=== PATIENT | male | born 1970 | race Caucasian/White ===

== ENCOUNTER 2016-11-05 09:50 | Inpatient (IN) | payer OTHER ==
[2016-11-05 11:00] VITALS: BMI 22.5
--- NOTE | 2016-11-05 12:18 | HP ---
CIWA Score - CIWA Score Nausea/Vomitin-Mild Nausea/No Vomiting Muscle Tremors: 4-Moderate,w/Arms Extend Anxiety: 3 Agitation: 4-Moderately Restless Paroxysmal Sweats: 3 Orientation: 0-Oriented Tacttile Disturbances: 0-None Auditory Disturbances: 0-None Visual Disturbances: 0-None Headache: 2-Mild CIWA-Ar Total Score: 17 Admission ROS BHS - HPI Chief Complaint: I need to be here to detox and go to rehab. Allergies/Adverse Reactions: Allergies Allergy/AdvReac Type Severity Reaction Status Date / Time No Known Allergies Allergy Verified 11/05/16 11:19 History of Present Illness: Pt is a 45yr old male with a history of alcohol dependence seeking detox for treatment. Exam Limitations: No Limitations - Ebola screening Have you traveled outside of the country in the last 21 days: No Have you had contact with anyone from an Ebola affected area: No Have you been sick,other than usual withdrawal symptoms: No Do you have a fever: No - Review of Systems Constitutional: Diaphoresis, Loss of Appetite, Night Sweats, Unintentional Wgt. Loss EENT: reports: No Symptoms Reported Respiratory: reports: No Symptoms reported GI: reports: Nausea, Poor Appetite, Poor Fluid Intake : reports: No Symptoms Reported Musculoskeletal: reports: Back Pain Integumentary: reports: Flushing, Sweating Neuro: reports: Headache, Tingling, Tremors Endocrine: reports: Excessive Sweating, Flushing, Intolerance to Cold, Intolerance to Heat Hematology: reports: No Symptoms Reported Psychiatric: reports: Judgement Intact, Mood/Affect Appropiate, Orientated x3, Agitated, Anxious Other Systems: Reviewed and Negative Patient History - Patient Medical History Hx Anemia: No Hx Asthma: No Hx Chronic Obstructive Pulmonary Disease (COPD): No Hx Cancer: No Hx Cardiac Disorders: No Hx Congestive Heart Failure: No Hx Hypertension: No Hx Hypercholesterolemia: No Hx Pacemaker: No HX Cerebrovascular Accident: No Hx Seizures: No Hx Dementia: No Hx Diabetes: No Hx Gastrointestinal Disorders: No Hx Liver Disease: No Hx Genitourinary Disorders: No Hx Sexually Transmitted Disorders: No Hx Renal Disease (ESRD): No Hx Thyroid Disease: No Hx Human Immunodeficiency Virus (HIV): No (negative) Hx Hepatitis C: No (negative) Hx Depression: Yes Hx Suicide Attempt: No (denies) Hx Bipolar Disorder: No Hx Schizophrenia: No - Patient Surgical History Past Surgical History: No Hx Neurologic Surgery: No Hx Cataract Extraction: No Hx Cardiac Surgery: No Hx Lung Surgery: No Hx Breast Surgery: No Hx Breast Biopsy: No Hx Abdominal Surgery: No Hx Appendectomy: No Hx Cholecystectomy: No Hx Genitourinary Surgery: No Hx Section: No Hx Orthopedic Surgery: No Anesthesia Reaction: No - PPD History Previous Implant?: Yes Documented Results: Negative w/o proof Implanted On Prior [facility] Admission?: Yes PPD to be Administered?: Yes - Reproductive History Patient is a Female of Child Bearing Age (11 -55 yrs old): No - Smoking Cessation Smoking history: Never smoked Have you smoked in the past 12 months: Yes Cigars Per Day: 0 Hx Chewing Tobacco Use: No Initiated information on smoking cessation: No 'Breaking Loose' booklet given: 11/05/16 - Substance & Tx. History Hx Alcohol Use: Yes Hx Substance Use: Yes Substance Use Type: Alcohol, Cocaine Hx Substance Use Treatment: Yes - Substances Abused Alcohol Route: Oral Frequency: Daily Amount used: beer(2-6pks-16 oz cans) Age of first use: 6 Date of Last Use: 11/05/16 Cocaine Route: Smoking Frequency: 1-3 times last 30 days Amount used: $20-40 Age of first use: 34 Date of Last Use: 11/03/16 Family Disease History - Family Disease History Family Disease History: Other: Father (parkinson's disease ) Admission Physical Exam BHS - Vital Signs Vital Signs: Vital Signs - 24 hr 11/05/16 10:54 Temperature 97.4 F L Pulse Rate 97 H Respiratory 20 Rate Blood Pressure 131/88 - Physical General Appearance: Yes: Appropriately Dressed, Mild Distress, Tremorous, Irritable, Sweating, Anxious HEENTM: Yes: Normal Voice Respiratory: Yes: Lungs Clear, Normal Breath Sounds, No Respiratory Distress Neck: Yes: Within Normal Limits Breast: Yes: Within Normal Limits Cardiology: Yes: Regular Rhythm, Regular Rate, S1, S2 Abdominal: Yes: Normal Bowel Sounds, Non Tender, Soft Genitourinary: Yes: Within Normal Limits Back: Yes: Normal Inspection Musculoskeletal: Yes: Gait Steady Extremities: Yes: Normal Capillary Refill, Normal Inspection, Tremors Neurological: Yes: Fully Oriented, Alert, Normal Response Integumentary: Yes: Normal Color, Diaphoresis Lymphatic: Yes: Within Normal Limits - Diagnostic (1) Alcohol dependence with uncomplicated withdrawal Current Visit: Yes Status: Chronic (2) Cocaine dependence Current Visit: Yes Status: Chronic Comment: . Cleared for Admission [facility] - Detox or Rehab [facility] Level of Care: Medically Managed Detox Regimen/Protocol: Librium [facility] Breath Alcohol Content Breath Alcohol Content: 0 Urine Drug Screen - Results Drug Screen Negative: No Urine Drug Screen Results: CAILIN-Cocaine, BZO-Benzodiazepines
[2016-11-05] MEDS ORDERED: chlordiazePOXIDE HCL 25 MG CAPSULE PO PRN (12:22)
[2016-11-05] MEDS ORDERED: MAG HYDROX/AL HYDROX/SIMETH 30 ML UNIT-DOSE CUP PO PRN (12:22)
[2016-11-05] MEDS ORDERED: IBUPROFEN 400 MG TABLET (FP) PO PRN (12:22)
[2016-11-05] MEDS ORDERED: diphenhydrAMINE HCL 50 MG CAPSULE PO PRN (12:22)
[2016-11-05] MEDS ORDERED: hydrOXYzine PAMOATE 50 MG CAPSULE (FP) PO PRN (12:22)
[2016-11-05] MEDS ORDERED: MENTHOL/PHENOL 1 EACH UD MM PRN (12:22)
[2016-11-05] MEDS ORDERED: P-EPHED 60MG/TRIPROLIDI 2.5MG TABLET PO PRN (12:22)
[2016-11-05] MEDS ORDERED: MAGNESIUM HYDROX 2400MG/30ML ORAL SUSPENSION 30 ML CUP PO PRN (12:22)
[2016-11-05] MEDS ORDERED: ACETAMINOPHEN 325 MG TABLET (FP) PO PRN (12:22)
[2016-11-05] MEDS ORDERED: LOPERAMIDE HCL 2 MG CAPSULE PO PRN (12:22)
[2016-11-05] MEDS ORDERED: guaiFENesin/D-METHORPHAN HB 10 ML UNIT-DOSE CUPS PO PRN (12:22)
[2016-11-05] MEDS ORDERED: MAGNESIUM CITRATE 300 ML BOTTLE PO PRN (12:22)
[2016-11-05] MEDS ORDERED: chlordiazePOXIDE HCL 25 MG CAPSULE PO ONE (12:59)
[2016-11-05] MEDS ORDERED: PANTOPRAZOLE 40 MG TABLET (FP) PO ONE (15:17)
[2016-11-05 17:08] LABS: HIV 1 & 2 AB NEGATIVE; HIV 1 AGp24 NEGATIVE
[2016-11-05] MEDS: chlordiazePOXIDE HCL 25 MG CAPSULE PO SCH ×2 (18:06→23:01)
[2016-11-05 19:26] LABS: URINE APPEARANCE TURBID; URINE BILIRUBIN NEGATIVE (NEGATIVE); URINE BLOOD NEGATIVE (NEGATIVE); URINE COLOR YELLOW; URINE GLUCOSE (UA) NEGATIVE (NEGATIVE); URINE KETONE TRACE (NEGATIVE); URINE LEUK ESTERASE NEGATIVE (NEGATIVE); URINE NITRITE NEGATIVE (NEGATIVE); URINE PROTEIN NEGATIVE (NEGATIVE); URINE UROBILINOGEN NEGATIVE E.U./dl (0.2-1.0)
[2016-11-05] MEDS: THIAMINE HCL 100 MG TABLET (FP) PO SCH (23:01)
[2016-11-06] MEDS: chlordiazePOXIDE HCL 25 MG CAPSULE PO SCH ×4 (05:51→22:36)
[2016-11-06] MEDS ORDERED: CYCLOBENZAPRINE HCL 10 MG TABLET (FP) PO PRN (08:34)
[2016-11-06] MEDS ORDERED: CYCLOBENZAPRINE HCL 10 MG TABLET (FP) PO ONE (08:55)
[2016-11-06 10:04] LABS: MCH 31.9 pg (25.7-33.7); MCHC 33.5 g/dl (32.0-35.9); MEAN PLT VOLUME 11.2 fl (7.5-11.1); PLATELET COUNT 195 K/MM3 (134-434); RDW 14.9 % (11.9-15.9); WHITE BLOOD COUNT 10.7 K/mm3 (4.0-10.0)
--- NOTE | 2016-11-06 10:25 | EKG ---
Test Reason : Blood Pressure : / mmHG Vent. Rate : 072 BPM Atrial Rate : 072 BPM P-R Int : 160 ms QRS Dur : 092 ms QT Int : 388 ms P-R-T Axes : 045 043 039 degrees QTc Int : 424 ms NORMAL SINUS RHYTHM MINIMAL VOLTAGE CRITERIA FOR LVH, MAY BE NORMAL VARIANT BORDERLINE ECG NO PREVIOUS ECGS AVAILABLE Confirmed by KARINA JEFFRIES, CHRISTIANO ([id number]) on 11/06/2016 10:25:11 AM Referred By: Sandeep Burris Confirmed By:CHRISTIANO COLLINS MD
[2016-11-06 10:51] LABS: ALBUMIN 4.3 g/dl (3.4-5.0); ALK PHOS 87 U/L (45-117); ANION GAP 8 (8-16); BILIRUBIN,TOTAL 0.5 mg/dL (0.2-1.0); CALCIUM 9.7 mg/dL (8.5-10.1); CO2 29 mmol/L (21-32); COCKROFT - GAULT 78.82; CREATININE 1.1 mg/dL (0.7-1.3); GLUCOSE,RANDOM 90 mg/dL (74-106); SGOT/AST 30 U/L (15-37); SGPT/ALT 50 U/L (12-78); TOT PROT 7.9 g/dl (6.4-8.2)
[2016-11-06] MEDS: PANTOPRAZOLE 40 MG TABLET (FP) PO SCH (11:02)
[2016-11-06] MEDS: PRENATAL VITAMINS W/ FOLIC ACID TABLET (FP) PO SCH (11:02)
--- NOTE | 2016-11-06 11:43 | PN ---
S CIWA - CIWA Score Nausea/Vomitin-No Nausea/No Vomiting Muscle Tremors: 4-Moderate,w/Arms Extend Anxiety: 3 Agitation: 4-Moderately Restless Paroxysmal Sweats: 3 Orientation: 0-Oriented Tacttile Disturbances: 0-None Auditory Disturbances: 0-None Visual Disturbances: 0-None Headache: 0-None Present CIWA-Ar Total Score: 14 BHS Progress Note (SOAP) Subjective: stomach cramping sweats shakes interrupted sleep Objective: 11/06/16 11:36 Vital Signs Temperature 98.1 F 11/06/16 09:45 Pulse Rate 78 11/06/16 09:45 Respiratory Rate 16 11/06/16 09:45 Blood Pressure 128/92 11/06/16 09:45 O2 Sat by Pulse Oximetry (%) Laboratory Tests 11/05/16 11/05/16 11/06/16 11:25 14:00 06:00 WBC 10.7 H D RBC 4.70 Hgb 15.0 Hct 44.6 MCV 95.0 MCHC 33.5 RDW 14.9 Plt Count 195 MPV 11.2 H Sodium Potassium Chloride Carbon Dioxide Anion Gap BUN Creatinine Creat Clearance w eGFR Random Glucose Calcium Total Bilirubin AST ALT Alkaline Phosphatase Total Protein Albumin Urine Color Yellow Urine Appearance Turbid Urine pH 5.0 Ur Specific [place] 1.020 Urine Protein Negative Urine Glucose (UA) Negative Urine Ketones Trace H Urine Blood Negative Urine Nitrite Negative Urine Bilirubin Negative Urine Urobilinogen Negative Ur Leukocyte Esterase Negative HIV 1&2 Antibody Screen Negative HIV P24 Antigen Negative 11/06/16 06:00 WBC RBC Hgb Hct MCV MCHC RDW Plt Count MPV Sodium 136 Potassium 4.8 Chloride 99 Carbon Dioxide 29 Anion Gap 8 BUN 25 H Creatinine 1.1 D Creat Clearance w eGFR > 60 Random Glucose 90 D Calcium 9.7 Total Bilirubin 0.5 AST 30 D ALT 50 Alkaline Phosphatase 87 Total Protein 7.9 Albumin 4.3 D Urine Color Urine Appearance Urine pH Ur Specific [place] Urine Protein Urine Glucose (UA) Urine Ketones Urine Blood Urine Nitrite Urine Bilirubin Urine Urobilinogen Ur Leukocyte Esterase HIV 1&2 Antibody Screen HIV P24 Antigen awake/alert ambulating no acute distress Assessment: 11/06/16 11:37 withdrawal sx Plan: continue detox increase fluids protonix 40mg daily mom/mylanta prn repeat cbc
[2016-11-06] MEDS: THIAMINE HCL 100 MG TABLET (FP) PO SCH (22:35)
[2016-11-07] MEDS: chlordiazePOXIDE HCL 25 MG CAPSULE PO SCH ×2 (05:37→11:03)
[2016-11-07 10:28] LABS: BASOPHIL 0.8 % (0-2.0); EOSINOPHIL 2.3 % (0-4.5); MCH 31.8 pg (25.7-33.7); MCHC 33.4 g/dl (32.0-35.9); MEAN CELL VOLUME 95.2 fl (80-96); MEAN PLT VOLUME 10.4 fl (7.5-11.1); NEUTROPHILS 53.3 % (42.8-82.8); PLATELET COUNT 170 K/MM3 (134-434); RDW 14.7 % (11.9-15.9); WHITE BLOOD COUNT 4.3 K/mm3 (4.0-10.0)
[2016-11-07] MEDS: PRENATAL VITAMINS W/ FOLIC ACID TABLET (FP) PO SCH (11:03)
[2016-11-07] MEDS: PANTOPRAZOLE 40 MG TABLET (FP) PO SCH (11:03)
--- NOTE | 2016-11-07 11:12 | PN ---
[facility] CIWA - CIWA Score Nausea/Vomitin Muscle Tremors: 3 Anxiety: 3 Agitation: 2 Paroxysmal Sweats: 1-Minimal Palms Moist Orientation: 0-Oriented Tacttile Disturbances: 1-Very Mild Itch/Numbness Auditory Disturbances: 1-Very Mild Visual Disturbances: 1-Very Mild Sensitivity Headache: 2-Mild CIWA-Ar Total Score: 17 S Progress Note (SOAP) Subjective: ALERT,IRRITABLE,ANXIOUS,INTERRUPTED SLEEP,TREMOR Objective: 11/07/16 11:10 Vital Signs Temperature 97.9 F 11/07/16 09:27 Pulse Rate 83 11/07/16 09:27 Respiratory Rate 18 11/07/16 09:27 Blood Pressure 132/86 11/07/16 09:27 O2 Sat by Pulse Oximetry (%) Laboratory Last Values WBC 10.7 K/mm3 (4.0-10.0) H D 11/06/16 06:00 RBC 4.70 M/mm3 (4.00-5.60) 11/06/16 06:00 Hgb 15.0 GM/dL (11.7-16.9) 11/06/16 06:00 Hct 44.6 % (35.4-49) 11/06/16 06:00 MCV 95.0 fl (80-96) 11/06/16 06:00 MCHC 33.5 g/dl (32.0-35.9) 11/06/16 06:00 RDW 14.9 % (11.9-15.9) 11/06/16 06:00 Plt Count 195 K/MM3 (134-434) 11/06/16 06:00 MPV 11.2 fl (7.5-11.1) H 11/06/16 06:00 Sodium 136 mmol/L (136-145) 11/06/16 06:00 Potassium 4.8 mmol/L (3.5-5.1) 11/06/16 06:00 Chloride 99 mmol/L (98-107) 11/06/16 06:00 Carbon Dioxide 29 mmol/L (21-32) 11/06/16 06:00 Anion Gap 8 (8-16) 11/06/16 06:00 BUN 25 mg/dL (7-18) H 11/06/16 06:00 Creatinine 1.1 mg/dL (0.7-1.3) D 11/06/16 06:00 Creat Clearance w eGFR > 60 (>60) 11/06/16 06:00 Random Glucose 90 mg/dL (74-106) D 11/06/16 06:00 Calcium 9.7 mg/dL (8.5-10.1) 11/06/16 06:00 Total Bilirubin 0.5 mg/dL (0.2-1.0) 11/06/16 06:00 AST 30 U/L (15-37) D 11/06/16 06:00 ALT 50 U/L (12-78) 11/06/16 06:00 Alkaline Phosphatase 87 U/L (45-117) 11/06/16 06:00 Total Protein 7.9 g/dl (6.4-8.2) 11/06/16 06:00 Albumin 4.3 g/dl (3.4-5.0) D 11/06/16 06:00 Urine Color Yellow 11/05/16 14:00 Urine Appearance Turbid 11/05/16 14:00 Urine pH 5.0 (5.0-8.0) 11/05/16 14:00 Ur Specific [place] 1.020 (1.005-1.025) 11/05/16 14:00 Urine Protein Negative (NEGATIVE) 11/05/16 14:00 Urine Glucose (UA) Negative (NEGATIVE) 11/05/16 14:00 Urine Ketones Trace (NEGATIVE) H 11/05/16 14:00 Urine Blood Negative (NEGATIVE) 11/05/16 14:00 Urine Nitrite Negative (NEGATIVE) 11/05/16 14:00 Urine Bilirubin Negative (NEGATIVE) 11/05/16 14:00 Urine Urobilinogen Negative E.U./dl (0.2-1.0) 11/05/16 14:00 Ur Leukocyte Esterase Negative (NEGATIVE) 11/05/16 14:00 RPR Titer Nonreactive (NONREACTIVE) 11/06/16 06:00 HIV 1&2 Antibody Screen Negative 11/05/16 11:25 HIV P24 Antigen Negative 11/05/16 11:25 Assessment: 11/07/16 11:11 WITHDRAWAL SYMPTOM Plan: CONTINUE DETOX,REPEAT CBC,CMP PENDING ENCOURAGE ORAL FLUID
--- NOTE | 2016-11-07 11:38 | EKG ---
Test Reason : Blood Pressure : / mmHG Vent. Rate : 084 BPM Atrial Rate : 084 BPM P-R Int : 156 ms QRS Dur : 096 ms QT Int : 374 ms P-R-T Axes : 040 045 033 degrees QTc Int : 441 ms NORMAL SINUS RHYTHM NORMAL ECG WHEN COMPARED WITH ECG OF 05-NOV-2016 12:01, NO SIGNIFICANT CHANGE WAS FOUND Confirmed by YVETTE LONG MD ([id number]) on 11/07/2016 11:38:24 AM Referred By: Sandeep Burris Confirmed By:YVETTE LONG MD
[2016-11-07 14:27] LABS: ALBUMIN 4.2 g/dl (3.4-5.0); ANION GAP 13 (8-16); CALCIUM 9.4 mg/dL (8.5-10.1); CO2 29 mmol/L (21-32); GLUCOSE,RANDOM 75 mg/dL (74-106)
[2016-11-07 14:32] LABS: ALK PHOS 84 U/L (45-117); BILIRUBIN,TOTAL 0.5 mg/dL (0.2-1.0); COCKROFT - GAULT 96.34; CREATININE 0.9 mg/dL (0.7-1.3); SGOT/AST 24 U/L (15-37); SGPT/ALT 43 U/L (12-78); TOT PROT 7.8 g/dl (6.4-8.2)
[2016-11-07] MEDS: chlordiazePOXIDE 5 MG CAPSULE PO SCH ×2 (18:13→22:11)
[2016-11-07] MEDS: THIAMINE HCL 100 MG TABLET (FP) PO SCH (22:10)
--- NOTE | 2016-11-07 23:11 | PN ---
[facility] Progress Note Note: unable to remove ear plug, patient reports right ear plug had been removed by himself, but the left ear plug "still in" left ear plug visible, 2mm in depth from surface, retracted by suture removal forceps, ear plug intact as per patient statement, patient denies discomfort, denies hearing alteration continue detox
[2016-11-08] MEDS: chlordiazePOXIDE 5 MG CAPSULE PO SCH (06:39)
[2016-11-08 06:47] VITALS: BP 137/81; PULSE 63; TEMP 97.5
--- NOTE | 2016-11-08 08:35 | PN ---
S Progress Note (SOAP) Subjective: ALERT,NO COMPLAINT Objective: 11/08/16 08:30 Vital Signs Temperature 97.5 F L 11/08/16 06:00 Pulse Rate 63 11/08/16 06:00 Respiratory Rate 16 11/08/16 06:00 Blood Pressure 137/81 11/08/16 06:00 O2 Sat by Pulse Oximetry (%) Assessment: 11/08/16 08:30 11/08/16 08:31 Laboratory Last Values WBC 4.3 K/mm3 (4.0-10.0) D 11/07/16 07:00 RBC 4.69 M/mm3 (4.00-5.60) 11/07/16 07:00 Hgb 14.9 GM/dL (11.7-16.9) 11/07/16 07:00 Hct 44.7 % (35.4-49) 11/07/16 07:00 MCV 95.2 fl (80-96) 11/07/16 07:00 MCHC 33.4 g/dl (32.0-35.9) 11/07/16 07:00 RDW 14.7 % (11.9-15.9) 11/07/16 07:00 Plt Count 170 K/MM3 (134-434) 11/07/16 07:00 MPV 10.4 fl (7.5-11.1) 11/07/16 07:00 Neutrophils % 53.3 % (42.8-82.8) 11/07/16 07:00 Lymphocytes % 31.5 % (8-40) 11/07/16 07:00 Monocytes % 12.1 % (3.8-10.2) H 11/07/16 07:00 Eosinophils % 2.3 % (0-4.5) 11/07/16 07:00 Basophils % 0.8 % (0-2.0) 11/07/16 07:00 Sodium 142 mmol/L (136-145) 11/07/16 09:50 Potassium 4.1 mmol/L (3.5-5.1) 11/07/16 09:50 Chloride 100 mmol/L (98-107) 11/07/16 09:50 Carbon Dioxide 29 mmol/L (21-32) 11/07/16 09:50 Anion Gap 13 (8-16) 11/07/16 09:50 BUN 19 mg/dL (7-18) H D 11/07/16 09:50 Creatinine 0.9 mg/dL (0.7-1.3) 11/07/16 09:50 Creat Clearance w eGFR > 60 (>60) 11/07/16 09:50 Random Glucose 75 mg/dL (74-106) 11/07/16 09:50 Calcium 9.4 mg/dL (8.5-10.1) 11/07/16 09:50 Total Bilirubin 0.5 mg/dL (0.2-1.0) 11/07/16 09:50 AST 24 U/L (15-37) 11/07/16 09:50 ALT 43 U/L (12-78) 11/07/16 09:50 Alkaline Phosphatase 84 U/L (45-117) 11/07/16 09:50 Total Protein 7.8 g/dl (6.4-8.2) 11/07/16 09:50 Albumin 4.2 g/dl (3.4-5.0) 11/07/16 09:50 Urine Color Yellow 11/05/16 14:00 Urine Appearance Turbid 11/05/16 14:00 Urine pH 5.0 (5.0-8.0) 11/05/16 14:00 Ur Specific [place] 1.020 (1.005-1.025) 11/05/16 14:00 Urine Protein Negative (NEGATIVE) 11/05/16 14:00 Urine Glucose (UA) Negative (NEGATIVE) 11/05/16 14:00 Urine Ketones Trace (NEGATIVE) H 11/05/16 14:00 Urine Blood Negative (NEGATIVE) 11/05/16 14:00 Urine Nitrite Negative (NEGATIVE) 11/05/16 14:00 Urine Bilirubin Negative (NEGATIVE) 11/05/16 14:00 Urine Urobilinogen Negative E.U./dl (0.2-1.0) 11/05/16 14:00 Ur Leukocyte Esterase Negative (NEGATIVE) 11/05/16 14:00 RPR Titer Nonreactive (NONREACTIVE) 11/06/16 06:00 HIV 1&2 Antibody Screen Negative 11/05/16 11:25 HIV P24 Antigen Negative 11/05/16 11:25 Plan: PATIENT IS STABLE FOR DISCHARGE TODAY,FOLLOW UP WITH AFTER CARE PROGRAM ARRANGEMENT
--- NOTE | 2016-11-08 08:36 | DS ---
[facility] Detox Discharge Summary Admission Date: 11/05/16 Discharge Date: 11/08/16 - History Present History: Alcohol Dependence, Cocaine Dependence Additional Comments: FOLLOW UP WITH AFTER CARE PROGRAM ARRANGEMENT Pertinent Past History: NICOTINE DEPENDENCE SYNCOPE HYPERTENSION - Physical Exam Results Vital Signs: Vital Signs Temperature 97.5 F L 11/08/16 06:00 Pulse Rate 63 11/08/16 06:00 Respiratory Rate 16 11/08/16 06:00 Blood Pressure 137/81 11/08/16 06:00 O2 Sat by Pulse Oximetry (%) Pertinent Admission Physical Exam Findings: WITHDRAWAL SYMPTOM - Treatment Hospital Course: Detox Protocol Followed, Detoxed Safely, Responded well, Discharged Condition Good Patient has Accepted a Rehab Referral to: DECLINED - Medication Discharge Medications: Ambulatory Orders NK [No Known Home Medication] 03/16/14 - Diagnosis (1) Alcohol dependence with uncomplicated withdrawal Current Visit: Yes Status: Chronic (2) Cocaine dependence Current Visit: Yes Status: Chronic (3) Syncope Current Visit: No Status: Acute (4) Depression Current Visit: No Status: Chronic Qualifiers: Depression Type: unspecified Qualified Code(s): F32.9 - Major depressive disorder, single episode, unspecified (5) Hypertension Current Visit: No Status: Chronic Qualifiers: Hypertension type: essential hypertension Qualified Code(s): I10 - Essential (primary) hypertension - AMA Did Patient Leave Against Medical Advice: No
[2016-11-08] MEDS ORDERED: chlordiazePOXIDE HCL 10 MG CAPSULE PO SCH (17:00)
== END 2016-11-08 09:35 | disposition home or self-care (01) | DRG 774 ==
LOC: YASAS 09:50 → Y6N 12:05
PROVIDERS: ADMIT Internal Medicine Addiction Medicine; ATTEND Internal Medicine Addiction Medicine
PROC: HZ2ZZZZ Detoxification Services for Substance Abuse Treatment (ICD-10-PCS; principal; 2016-11-08)
DX: F10.230 Alcohol dependence with withdrawal, uncomplicated (principal); F14.20 Cocaine dependence, uncomplicated; F32.9 Major depressive disorder, single episode, unspecified; I10 Essential (primary) hypertension; R55 Syncope and collapse
CPT/HCPCS: 36415; 80053; 81003; 85025; 85027; 86593; 87389; 93005; 93010

== ENCOUNTER 2017-04-14 08:58 | Inpatient (IN) | payer OTHER ==
[2017-04-14 10:11] VITALS: BMI 24.4
--- NOTE | 2017-04-14 13:26 | HP ---
CIWA Score - CIWA Score Nausea/Vomitin-No Nausea/No Vomiting Muscle Tremors: 4-Moderate,w/Arms Extend Anxiety: 3 Agitation: 4-Moderately Restless Paroxysmal Sweats: 3 Orientation: 0-Oriented Tacttile Disturbances: 0-None Auditory Disturbances: 0-None Visual Disturbances: 0-None Headache: 1-Very Mild CIWA-Ar Total Score: 15 Admission ROS BHS - HPI Chief Complaint: I am a danger to myself if I dont get help. Allergies/Adverse Reactions: Allergies Allergy/AdvReac Type Severity Reaction Status Date / Time No Known Allergies Allergy Verified 04/14/17 12:00 History of Present Illness: pt is a 46yr old male with a history of alcohol dependence seeking detox for treatment. Exam Limitations: No Limitations - Ebola screening Have you traveled outside of the country in the last 21 days: No Have you had contact with anyone from an Ebola affected area: No Have you been sick,other than usual withdrawal symptoms: No Do you have a fever: No - Review of Systems Constitutional: Chills, Diaphoresis, Changes in sleep EENT: reports: No Symptoms Reported Respiratory: reports: No Symptoms reported Cardiac: reports: Syncope GI: reports: Poor Appetite, Poor Fluid Intake, Indigestion : reports: No Symptoms Reported Musculoskeletal: reports: No Symptoms Reported Integumentary: reports: Flushing, Sweating Neuro: reports: Headache, Tingling, Tremors Endocrine: reports: Excessive Sweating, Flushing, Intolerance to Cold, Intolerance to Heat Hematology: reports: No Symptoms Reported Psychiatric: reports: Judgement Intact, Mood/Affect Appropiate, Orientated x3, Agitated, Anxious Other Systems: Reviewed and Negative Patient History - Patient Medical History Hx Anemia: No Hx Asthma: No Hx Chronic Obstructive Pulmonary Disease (COPD): No Hx Cancer: No Hx Cardiac Disorders: No Hx Congestive Heart Failure: No Hx Hypertension: No Hx Hypercholesterolemia: No Hx Pacemaker: No HX Cerebrovascular Accident: No Hx Seizures: No Hx Dementia: No Hx Diabetes: No Hx Gastrointestinal Disorders: No Hx Liver Disease: No Hx Genitourinary Disorders: No Hx Sexually Transmitted Disorders: No Hx Renal Disease (ESRD): No Hx Thyroid Disease: No Hx Human Immunodeficiency Virus (HIV): No (negative) Hx Hepatitis C: No (negative) Hx Depression: Yes Hx Suicide Attempt: No (denies) Hx Bipolar Disorder: Yes Hx Schizophrenia: No - Patient Surgical History Past Surgical History: No Hx Neurologic Surgery: No Hx Cataract Extraction: No Hx Cardiac Surgery: No Hx Lung Surgery: No Hx Breast Surgery: No Hx Breast Biopsy: No Hx Abdominal Surgery: No Hx Appendectomy: No Hx Cholecystectomy: No Hx Genitourinary Surgery: No Hx Section: No Hx Orthopedic Surgery: No Anesthesia Reaction: No - PPD History Previous Implant?: Yes Documented Results: Negative w/proof Implanted On Prior [facility] Admission?: Yes Date: 11/07/16 Results: 0 mm PPD to be Administered?: No - Reproductive History Patient is a Female of Child Bearing Age (11 -55 yrs old): No - Smoking Cessation Smoking history: Current some day smoker Have you smoked in the past 12 months: Yes Aproximately how many cigarettes per day: 2 Cigars Per Day: 0 Hx Chewing Tobacco Use: No Initiated information on smoking cessation: Yes 'Breaking Loose' booklet given: 04/14/17 - Substance & Tx. History Hx Alcohol Use: Yes Hx Substance Use: Yes Substance Use Type: Alcohol, Cocaine Hx Substance Use Treatment: Yes (last detox 10/2016 [facility]) - Substances Abused Alcohol Route: Oral Frequency: Daily Amount used: 6 22 oz beers/ 6 shots whiskey Age of first use: 7 Date of Last Use: 04/14/17 Cocaine Route: Inhalation Frequency: 1-2 times per week Amount used: 1/2 gram Age of first use: 33 Date of Last Use: 04/13/17 Family Disease History - Family Disease History Family Disease History: Other: Father (parkinson's disease ) Admission Physical Exam BHS - Vital Signs Vital Signs: Vital Signs - 24 hr 04/14/17 10:09 Temperature 96.8 F L Pulse Rate 117 H Respiratory 18 Rate Blood Pressure 135/97 - Physical General Appearance: Yes: Appropriately Dressed, Moderate Distress, Tremorous, Irritable, Sweating, Anxious HEENTM: Yes: Hearing grossly Normal, Normal ENT Inspection, Normal Voice Respiratory: Yes: Chest Non-Tender, Lungs Clear, Normal Breath Sounds, No Respiratory Distress Neck: Yes: No masses,lesions,Nodules Breast: Yes: Within Normal Limits Cardiology: Yes: Regular Rhythm, Regular Rate, S1, S2 Abdominal: Yes: Normal Bowel Sounds, Non Tender, Soft Genitourinary: Yes: Within Normal Limits Back: Yes: Normal Inspection Musculoskeletal: Yes: full range of Motion, Back pain Extremities: Yes: Normal Capillary Refill, Normal Inspection, Tremors Neurological: Yes: Fully Oriented, Alert, Normal Response - Diagnostic (1) Alcohol dependence with uncomplicated withdrawal Current Visit: Yes Status: Chronic (2) Cocaine dependence Current Visit: Yes Status: Chronic Comment: . (3) Hypertension Current Visit: Yes Status: Chronic Qualifiers: Hypertension type: essential hypertension Qualified Code(s): I10 - Essential (primary) hypertension; I10 - Essential (primary) hypertension; I10 - Essential (primary) hypertension (4) Nicotine dependence Current Visit: No Status: Chronic Qualifiers: Nicotine product type: cigarettes Substance use status: uncomplicated Qualified Code(s): F17.210 - Nicotine dependence, cigarettes, uncomplicated; F17.210 - Nicotine dependence, cigarettes, uncomplicated Comment: . Cleared for Admission [facility] - Detox or Rehab [facility] Level of Care: Medically Managed Detox Regimen/Protocol: Librium [facility] Breath Alcohol Content Breath Alcohol Content: 0.010 Urine Drug Screen - Results Drug Screen Negative: No Urine Drug Screen Results: CAILIN-Cocaine
[2017-04-14] MEDS ORDERED: ACETAMINOPHEN 325 MG TABLET (FP) PO PRN (13:37)
[2017-04-14] MEDS ORDERED: MAG HYDROX/AL HYDROX/SIMETH 30 ML UNIT-DOSE CUP PO PRN (13:37)
[2017-04-14] MEDS ORDERED: diphenhydrAMINE HCL 50 MG CAPSULE PO PRN (13:37)
[2017-04-14] MEDS ORDERED: guaiFENesin/D-METHORPHAN HB 10 ML UNIT-DOSE CUPS PO PRN (13:37)
[2017-04-14] MEDS ORDERED: IBUPROFEN 400 MG TABLET (FP) PO PRN (13:37)
[2017-04-14] MEDS ORDERED: chlordiazePOXIDE HCL 25 MG CAPSULE PO PRN (13:37)
[2017-04-14] MEDS ORDERED: hydrOXYzine PAMOATE 50 MG CAPSULE (FP) PO PRN (13:37)
[2017-04-14] MEDS ORDERED: P-EPHED 60MG/TRIPROLIDI 2.5MG TABLET PO PRN (13:37)
[2017-04-14] MEDS ORDERED: MENTHOL/PHENOL 1 EACH UD MM PRN (13:37)
[2017-04-14] MEDS ORDERED: MAGNESIUM HYDROX 2400MG/30ML ORAL SUSPENSION 30 ML CUP PO PRN (13:37)
[2017-04-14] MEDS ORDERED: MAGNESIUM CITRATE 300 ML BOTTLE PO PRN (13:37)
[2017-04-14] MEDS ORDERED: LOPERAMIDE HCL 2 MG CAPSULE PO PRN (13:37)
[2017-04-14] MEDS ORDERED: chlordiazePOXIDE HCL 25 MG CAPSULE PO ONE (15:27)
[2017-04-14] MEDS: chlordiazePOXIDE HCL 25 MG CAPSULE PO SCH ×2 (17:16→22:04)
[2017-04-14 17:20] LABS: URINE APPEARANCE CLEAR; URINE BILIRUBIN NEGATIVE (NEGATIVE); URINE BLOOD NEGATIVE (NEGATIVE); URINE COLOR YELLOW; URINE GLUCOSE (UA) NEGATIVE (NEGATIVE); URINE KETONE NEGATIVE (NEGATIVE); URINE NITRITE NEGATIVE (NEGATIVE); URINE PROTEIN NEGATIVE (NEGATIVE); URINE UROBILINOGEN NEGATIVE mg/dL (0.2-1.0)
--- NOTE | 2017-04-14 17:46 | CONSULT ---
[facility] Psychiatric Consult - Data Date of interview: 04/14/17 Admission source: [facility] Identifying data: One of multiple admissions to [facility] for this 46 y/o male seeking detox treatment on for alcohol and cocaine dependence.Patient is ,a father of one,domiciled,unemployed and deprived of financial assistance. Substance Abuse History: Confirmed by patient in this interview.Smoking history : Current some day smoker. Have you smoked in the past 12 months: Yes. Aproximately how many cigarettes per day: 2. Cigars Per Day: 0. Hx Chewing Tobacco Use: No. Initiated information on smoking cessation: Yes. 'Breaking Loose' booklet given: 04/14/17. - Substance & Tx. History. Hx Alcohol Use: Yes. Hx Substance Use: Yes. Substance Use Type: Alcohol, Cocaine. Hx Substance Use Treatment: Yes (last detox 10/2016 [facility]). - Substances Abused. Alcohol. Route: Oral. Frequency: Daily. Amount used: 6 22 oz beers/ 6 shots whiskey. Age of first use: 7. Date of Last Use: 04/14/17. Cocaine. Route: Inhalation. Frequency: 1-2 times per week. Amount used: 1/2 gram. Age of first use: 33. Date of Last Use: 04/13/17 Medical History: No reported medical problems. Psychiatric History: First treated with psychotropic medications (seroquel and escitalopram) during rehabilitation on 5[facility] (2006-).Diagnosed with MDD.History of four psychiatric hospitalizations : [facility] X 2,[facility] X 1 and [facility] X 1.Mr Wetzel reprts that he is currently followed at [facility] in [facility].Prescribed seroquel 100 mg po hs.No history of suicide attempts. Physical/Sexual Abuse/Trauma History: Patient denies. Additional Comment: Urine Drug Screen Results: CAILIN-Cocaine.Noted. Mental Status Exam - Mental Status Exam Alert and Oriented to: Time, Place, Person Cognitive Function: Good Patient Appearance: Well Groomed Mood: Nervous, Withdrawn, Anxious Affect: Mood Congruent, Constricted Patient Behavior: Fatigued, Appropriate, Cooperative Speech Pattern: Clear Voice Loudness: Normal Thought Process: Goal Oriented Thought Disorder: Not Present Hallucinations: Denies Suicidal Ideation: Denies Homicidal Ideation: Denies Insight/Judgement: Poor Sleep: Poorly, Difficulty falling asleep Appetite: Good Muscle strength/Tone: Normal Gait/Station: Normal Psychiatric Findings - Problem List ([place] 1, 2,3) (1) Alcohol dependence with uncomplicated withdrawal Current Visit: Yes Status: Acute (2) Cocaine dependence Current Visit: Yes Status: Acute Comment: . (3) Substance induced mood disorder Current Visit: Yes Status: Acute (4) Nicotine dependence Current Visit: Yes Status: Acute Qualifiers: Nicotine product type: cigarettes Substance use status: uncomplicated Qualified Code(s): F17.210 - Nicotine dependence, cigarettes, uncomplicated; F17.210 - Nicotine dependence, cigarettes, uncomplicated Comment: . (5) Hypertension Current Visit: Yes Status: Chronic Qualifiers: Hypertension type: essential hypertension Qualified Code(s): I10 - Essential (primary) hypertension; I10 - Essential (primary) hypertension; I10 - Essential (primary) hypertension (6) Insomnia Current Visit: Yes Status: Acute - Initial Treatment Plan Initial Treatment Plan: Psychoeducation.Detoxification.Seroquel 100 mg po hs.Side effects/benefits are discussed with the patient.He agrees with this careplan.Observation.
[2017-04-14 21:24] LABS: URINE LEUK ESTERASE Negative (NEGATIVE)
[2017-04-14] MEDS: QUEtiapine FUMARATE 100 MG TABLET (FP) PO SCH (22:04)
[2017-04-14] MEDS: THIAMINE HCL 100 MG TABLET (FP) PO SCH (22:04)
[2017-04-15] MEDS: chlordiazePOXIDE HCL 25 MG CAPSULE PO SCH ×4 (05:58→22:05)
[2017-04-15 10:04] LABS: MCH 31.5 pg (25.7-33.7); MCHC 33.7 g/dl (32.0-35.9); MEAN CELL VOLUME 93.4 fl (80-96); MEAN PLT VOLUME 11.1 fl (7.5-11.1); PLATELET COUNT 171 K/MM3 (134-434); RDW 13.8 % (11.9-15.9)
[2017-04-15] MEDS: PRENATAL VITAMINS W/ FOLIC ACID TABLET (FP) PO SCH (10:06)
[2017-04-15] MEDS: NICOTINE 7 MG/24 HOURS TOPICAL PATCH TD SCH (10:08)
--- NOTE | 2017-04-15 10:11 | PN ---
[facility] CIWA - CIWA Score Nausea/Vomitin-No Nausea/No Vomiting Muscle Tremors: 4-Moderate,w/Arms Extend Anxiety: 4-Mod. Anxious/Guarded Agitation: 4-Moderately Restless Paroxysmal Sweats: 1-Minimal Palms Moist Orientation: 0-Oriented Tacttile Disturbances: 3-Moderate Itch/Numb/Burn Auditory Disturbances: 0-None Visual Disturbances: 0-None Headache: 0-None Present CIWA-Ar Total Score: 16 BHS Progress Note (SOAP) Subjective: ANXIETY,SWEATS,SLIGHT TREMORS, INTERMITTENT SLEEP. Objective: 04/15/17 10:11 Vital Signs Temperature 96.7 F L 04/15/17 09:30 Pulse Rate 106 H 04/15/17 09:30 Respiratory Rate 18 04/15/17 09:30 Blood Pressure 136/92 04/15/17 09:30 O2 Sat by Pulse Oximetry (%) Laboratory Last Values WBC 6.0 K/mm3 (4.0-10.0) D 04/15/17 05:30 RBC 4.71 M/mm3 (4.00-5.60) 04/15/17 05:30 Hgb 14.8 GM/dL (11.7-16.9) 04/15/17 05:30 Hct 44.0 % (35.4-49) 04/15/17 05:30 MCV 93.4 fl (80-96) 04/15/17 05:30 MCH 31.5 pg (25.7-33.7) 04/15/17 05:30 MCHC 33.7 g/dl (32.0-35.9) 04/15/17 05:30 RDW 13.8 % (11.9-15.9) 04/15/17 05:30 Plt Count 171 K/MM3 (134-434) 04/15/17 05:30 MPV 11.1 fl (7.5-11.1) 04/15/17 05:30 Urine Color Yellow 04/14/17 15:30 Urine Appearance Clear 04/14/17 15:30 Urine pH 5.0 (5.0-8.0) 04/14/17 15:30 Ur Specific [place] >= 1.030 (1.005-1.025) H 04/14/17 15:30 Urine Protein Negative (NEGATIVE) 04/14/17 15:30 Urine Glucose (UA) Negative (NEGATIVE) 04/14/17 15:30 Urine Ketones Negative (NEGATIVE) 04/14/17 15:30 Urine Blood Negative (NEGATIVE) 04/14/17 15:30 Urine Nitrite Negative (NEGATIVE) 04/14/17 15:30 Urine Bilirubin Negative (NEGATIVE) 04/14/17 15:30 Urine Urobilinogen Negative mg/dL (0.2-1.0) 04/14/17 15:30 Ur Leukocyte Esterase Negative (NEGATIVE) 04/14/17 15:30 Assessment: 04/15/17 10:11 WITHDRAWAL SX Plan: CONTINUE DETOX
[2017-04-15 10:30] LABS: ALBUMIN 3.7 g/dl (3.4-5.0); ANION GAP 9 (8-16); CALCIUM 8.7 mg/dL (8.5-10.1); CO2 27 mmol/L (21-32); GLUCOSE,RANDOM 104 mg/dL (74-106)
[2017-04-15 10:34] LABS: ALK PHOS 91 U/L (45-117); BILIRUBIN,TOTAL 0.4 mg/dL (0.2-1.0); CREATININE 0.9 mg/dL (0.7-1.3); SGOT/AST 22 U/L (15-37); SGPT/ALT 37 U/L (12-78); TOT PROT 7.2 g/dl (6.4-8.2)
--- NOTE | 2017-04-15 20:32 | EKG ---
Test Reason : Blood Pressure : / mmHG Vent. Rate : 074 BPM Atrial Rate : 074 BPM P-R Int : 154 ms QRS Dur : 096 ms QT Int : 386 ms P-R-T Axes : 047 045 049 degrees QTc Int : 428 ms NORMAL SINUS RHYTHM MODERATE VOLTAGE CRITERIA FOR LVH, MAY BE NORMAL VARIANT BORDERLINE ECG WHEN COMPARED WITH ECG OF 05-NOV-2016 13:35, NO SIGNIFICANT CHANGE WAS FOUND Confirmed by TIGIST BURROWS MD ([id number] on 04/15/2017 8:32:32 PM Referred By: Confirmed By:TIGIST BURROWS MD
[2017-04-15] MEDS: THIAMINE HCL 100 MG TABLET (FP) PO SCH (22:05)
[2017-04-15] MEDS: QUEtiapine FUMARATE 100 MG TABLET (FP) PO SCH (22:05)
[2017-04-16] MEDS: chlordiazePOXIDE HCL 25 MG CAPSULE PO SCH ×2 (06:00→10:21)
[2017-04-16] MEDS: PRENATAL VITAMINS W/ FOLIC ACID TABLET (FP) PO SCH (10:21)
[2017-04-16] MEDS: NICOTINE 7 MG/24 HOURS TOPICAL PATCH TD SCH (10:22)
[2017-04-16] MEDS ORDERED: FLU VACCINE QUAD 60 MCG/0.5 ML (MDV 17-18) IM ONE (12:00)
--- NOTE | 2017-04-16 13:28 | PN ---
[facility] CIWA - CIWA Score Nausea/Vomitin-No Nausea/No Vomiting Muscle Tremors: 3 Anxiety: 4-Mod. Anxious/Guarded Agitation: 2 Paroxysmal Sweats: 3 Orientation: 2-Disoriented Date<2 days Tacttile Disturbances: 2-Mild Itch/Numbness/Burn Auditory Disturbances: 0-None Visual Disturbances: 2-Mild Sensitivity Headache: 0-None Present CIWA-Ar Total Score: 18 S Progress Note (SOAP) Subjective: Tremors, Anxious, Interrupted sleep, Sweating, Body Aches. Objective: PT. A & O X 3, OBSERVED AMBULATING ON UNIT. NO ACUTE DISTRESS. 04/16/17 13:33 Vital Signs Temperature 99.4 F 04/16/17 13:28 Pulse Rate 102 H 04/16/17 13:28 Respiratory Rate 18 04/16/17 13:28 Blood Pressure 125/92 04/16/17 13:28 O2 Sat by Pulse Oximetry (%) Laboratory Tests 04/14/17 04/15/17 04/15/17 15:30 05:30 05:30 WBC 6.0 D RBC 4.71 Hgb 14.8 Hct 44.0 MCV 93.4 MCH 31.5 MCHC 33.7 RDW 13.8 Plt Count 171 MPV 11.1 Sodium 139 Potassium 3.8 Chloride 103 Carbon Dioxide 27 Anion Gap 9 BUN 15 D Creatinine 0.9 Creat Clearance w eGFR > 60 Random Glucose 104 D Calcium 8.7 Total Bilirubin 0.4 AST 22 ALT 37 Alkaline Phosphatase 91 Total Protein 7.2 Albumin 3.7 Urine Color Yellow Urine Appearance Clear Urine pH 5.0 Ur Specific [place] >= 1.030 H Urine Protein Negative Urine Glucose (UA) Negative Urine Ketones Negative Urine Blood Negative Urine Nitrite Negative Urine Bilirubin Negative Urine Urobilinogen Negative Ur Leukocyte Esterase Negative RPR Titer 04/15/17 05:30 WBC RBC Hgb Hct MCV MCH MCHC RDW Plt Count MPV Sodium Potassium Chloride Carbon Dioxide Anion Gap BUN Creatinine Creat Clearance w eGFR Random Glucose Calcium Total Bilirubin AST ALT Alkaline Phosphatase Total Protein Albumin Urine Color Urine Appearance Urine pH Ur Specific [place] Urine Protein Urine Glucose (UA) Urine Ketones Urine Blood Urine Nitrite Urine Bilirubin Urine Urobilinogen Ur Leukocyte Esterase RPR Titer Nonreactive LABS NOTED. Assessment: 04/16/17 13:34 WITHDRAWAL SYMPTOMS. Plan: CONTINUE DETOX. CLONIDINE, 0.1 MG PO X 1 FOR DETOX SYMPTOMS.
[2017-04-16] MEDS ORDERED: cloNIDine HCL 0.1 MG TABLET PO ONE (14:00)
[2017-04-16] MEDS: chlordiazePOXIDE 5 MG CAPSULE PO SCH ×2 (17:33→22:00)
[2017-04-16] MEDS: QUEtiapine FUMARATE 100 MG TABLET (FP) PO SCH (22:00)
[2017-04-16] MEDS: THIAMINE HCL 100 MG TABLET (FP) PO SCH (22:00)
[2017-04-17] MEDS: chlordiazePOXIDE 5 MG CAPSULE PO SCH ×2 (05:11→10:04)
[2017-04-17] MEDS: CYCLOBENZAPRINE HCL 10 MG TABLET (FP) PO PRN ×2 (10:04→22:07)
[2017-04-17] MEDS: PRENATAL VITAMINS W/ FOLIC ACID TABLET (FP) PO SCH (10:06)
[2017-04-17] MEDS: NICOTINE 7 MG/24 HOURS TOPICAL PATCH TD SCH (10:06)
--- NOTE | 2017-04-17 12:44 | PN ---
BHS Progress Note (SOAP) Subjective: Sweating, Body Aches. Objective: PT. A & O X 3, OBSERVED AMBULATING ON UNIT. NO ACUTE DISTRESS. 04/17/17 12:43 Vital Signs Temperature 97.2 F L 04/17/17 09:02 Pulse Rate 85 04/17/17 09:02 Respiratory Rate 20 04/17/17 09:02 Blood Pressure 134/90 04/17/17 09:02 O2 Sat by Pulse Oximetry (%) Laboratory Tests 04/14/17 04/15/17 04/15/17 15:30 05:30 05:30 WBC 6.0 D RBC 4.71 Hgb 14.8 Hct 44.0 MCV 93.4 MCH 31.5 MCHC 33.7 RDW 13.8 Plt Count 171 MPV 11.1 Sodium 139 Potassium 3.8 Chloride 103 Carbon Dioxide 27 Anion Gap 9 BUN 15 D Creatinine 0.9 Creat Clearance w eGFR > 60 Random Glucose 104 D Calcium 8.7 Total Bilirubin 0.4 AST 22 ALT 37 Alkaline Phosphatase 91 Total Protein 7.2 Albumin 3.7 Urine Color Yellow Urine Appearance Clear Urine pH 5.0 Ur Specific [place] >= 1.030 H Urine Protein Negative Urine Glucose (UA) Negative Urine Ketones Negative Urine Blood Negative Urine Nitrite Negative Urine Bilirubin Negative Urine Urobilinogen Negative Ur Leukocyte Esterase Negative RPR Titer 04/15/17 05:30 WBC RBC Hgb Hct MCV MCH MCHC RDW Plt Count MPV Sodium Potassium Chloride Carbon Dioxide Anion Gap BUN Creatinine Creat Clearance w eGFR Random Glucose Calcium Total Bilirubin AST ALT Alkaline Phosphatase Total Protein Albumin Urine Color Urine Appearance Urine pH Ur Specific [place] Urine Protein Urine Glucose (UA) Urine Ketones Urine Blood Urine Nitrite Urine Bilirubin Urine Urobilinogen Ur Leukocyte Esterase RPR Titer Nonreactive LABS NOTED. Assessment: 04/17/17 12:43 WITHDRAWAL SYMPTOMS. Plan: CONTINUE DETOX. PRN FLEXERIL FOR BODY ACHES / MUSCLE SPASMS.
[2017-04-17] MEDS: chlordiazePOXIDE HCL 10 MG CAPSULE PO SCH ×2 (17:10→22:07)
[2017-04-17] MEDS: QUEtiapine FUMARATE 100 MG TABLET (FP) PO SCH (22:07)
[2017-04-17] MEDS: THIAMINE HCL 100 MG TABLET (FP) PO SCH (22:07)
[2017-04-18 05:59] VITALS: BP 108/74; PULSE 75; TEMP 96.3
[2017-04-18] MEDS: chlordiazePOXIDE HCL 10 MG CAPSULE PO SCH (06:32)
--- NOTE | 2017-04-18 13:19 | DS ---
[facility] Detox Discharge Summary Admission Date: 04/14/17 Discharge Date: 04/18/17 - History Present History: Cocaine Dependence, Opioid Dependence Additional Comments: PATIENT GOING HOME. PATIENT ADVISED TO FOLLOW-UP WITH LOCAL 12-STEP / NA /AA OUTPATIENT SUPPORT GROUP MEETINGS FOR AFTERCARE. PATIENT WAS DISCHARGED FROM DETOX UNIT IN STABLE MEDICAL CONDITION. Pertinent Past History: HTN, Insomnia, Nicotine dependence. - Physical Exam Results Vital Signs: Vital Signs Temperature 96.3 F L 04/18/17 05:58 Pulse Rate 75 04/18/17 05:58 Respiratory Rate 18 04/18/17 05:58 Blood Pressure 108/74 04/18/17 05:58 O2 Sat by Pulse Oximetry (%) Pertinent Admission Physical Exam Findings: WITHDRAWAL SYMPTOMS. Laboratory Tests 04/14/17 04/15/17 04/15/17 15:30 05:30 05:30 WBC 6.0 D RBC 4.71 Hgb 14.8 Hct 44.0 MCV 93.4 MCH 31.5 MCHC 33.7 RDW 13.8 Plt Count 171 MPV 11.1 Sodium 139 Potassium 3.8 Chloride 103 Carbon Dioxide 27 Anion Gap 9 BUN 15 D Creatinine 0.9 Creat Clearance w eGFR > 60 Random Glucose 104 D Calcium 8.7 Total Bilirubin 0.4 AST 22 ALT 37 Alkaline Phosphatase 91 Total Protein 7.2 Albumin 3.7 Urine Color Yellow Urine Appearance Clear Urine pH 5.0 Ur Specific [place] >= 1.030 H Urine Protein Negative Urine Glucose (UA) Negative Urine Ketones Negative Urine Blood Negative Urine Nitrite Negative Urine Bilirubin Negative Urine Urobilinogen Negative Ur Leukocyte Esterase Negative RPR Titer 04/15/17 05:30 WBC RBC Hgb Hct MCV MCH MCHC RDW Plt Count MPV Sodium Potassium Chloride Carbon Dioxide Anion Gap BUN Creatinine Creat Clearance w eGFR Random Glucose Calcium Total Bilirubin AST ALT Alkaline Phosphatase Total Protein Albumin Urine Color Urine Appearance Urine pH Ur Specific [place] Urine Protein Urine Glucose (UA) Urine Ketones Urine Blood Urine Nitrite Urine Bilirubin Urine Urobilinogen Ur Leukocyte Esterase RPR Titer Nonreactive LABS NOTED. - Treatment Hospital Course: Detox Protocol Followed, Detoxed Safely, Responded well, Discharged Condition Good Patient has Accepted a Rehab Referral to: NO. PT ADVISED TO CONSIDER LOCAL 12- STEP/NA/AA SUPPORT GROUPS FOR AFTERCARE - Medication Discharge Medications: Ambulatory Orders Quetiapine Fumarate [Seroquel -] 200 mg PO HS 04/14/17 Quetiapine Fumarate [Seroquel -] 200 mg PO HS #30 tab 04/14/17 - Diagnosis (1) Alcohol dependence with uncomplicated withdrawal Status: Acute (2) Cocaine dependence Status: Acute (3) Insomnia Status: Acute Qualifiers: Insomnia type: unspecified Qualified Code(s): G47.00 - Insomnia, unspecified; G47.00 - Insomnia, unspecified (4) Nicotine dependence Status: Chronic Qualifiers: Nicotine product type: cigarettes Substance use status: uncomplicated Qualified Code(s): F17.210 - Nicotine dependence, cigarettes, uncomplicated; F17.210 - Nicotine dependence, cigarettes, uncomplicated (5) Substance induced mood disorder Status: Acute (6) Hypertension Status: Chronic Qualifiers: Hypertension type: essential hypertension Qualified Code(s): I10 - Essential (primary) hypertension; I10 - Essential (primary) hypertension; I10 - Essential (primary) hypertension - AMA Did Patient Leave Against Medical Advice: No
== END 2017-04-18 09:20 | disposition home or self-care (01) | DRG 774 ==
LOC: YASAS 08:58 → Y3N 14:06
PROVIDERS: ADMIT Internal Medicine; ATTEND Internal Medicine
PROC: HZ2ZZZZ Detoxification Services for Substance Abuse Treatment (ICD-10-PCS; principal; 2017-04-14)
DX: F10.230 Alcohol dependence with withdrawal, uncomplicated (principal); F14.20 Cocaine dependence, uncomplicated; F17.210 Nicotine dependence, cigarettes, uncomplicated; F19.24 Other psychoactive substance dependence with psychoactive substance-induced mood disorder; I10 Essential (primary) hypertension; G47.00 Insomnia, unspecified
CPT/HCPCS: 36415; 80053; 81003; 85027; 86593; 93005; 93010

== ENCOUNTER 2017-09-28 08:46 | Inpatient (IN) | payer OTHER ==
[2017-09-28 08:57] VITALS: BMI 23.6
--- NOTE | 2017-09-28 09:28 | HP ---
CIWA Score - CIWA Score Nausea/Vomitin Muscle Tremors: 4-Moderate,w/Arms Extend Anxiety: 4-Mod. Anxious/Guarded Agitation: 1-Slight > Activity Paroxysmal Sweats: 2 Orientation: 1-Uncertain about Date Tacttile Disturbances: 0-None Auditory Disturbances: 0-None Visual Disturbances: 0-None Headache: 3-Moderate CIWA-Ar Total Score: 18 Admission ROS S - HPI Chief Complaint: Alcohol withdrawal symptoms Allergies/Adverse Reactions: Allergies Allergy/AdvReac Type Severity Reaction Status Date / Time No Known Allergies Allergy Verified 09/28/17 09:26 History of Present Illness: 46 years old male with a long history of alcohol dependence is seeking admission to detox. Patient has been to previous detox and reports 5 months of sobriety. He has medical history of Hypertension, depression and anxiety. Patient has dry mucous membrane and appears dehydrated. He denies suicide attempt and suicidal ideation at this time. Exam Limitations: No Limitations - Ebola screening Have you traveled outside of the country in the last 21 days: No (N) Have you had contact with anyone from an Ebola affected area: No Have you been sick,other than usual withdrawal symptoms: No Do you have a fever: No - Review of Systems Constitutional: Chills, Malaise, Night Sweats, Changes in sleep EENT: reports: Sinus Pressure Respiratory: reports: Shortness of Breath Cardiac: reports: No Symptoms Reported GI: reports: Diarrhea (diarrhea x 1), Nausea, Poor Fluid Intake, Vomiting ( vomiting x 2), Abdominal cramping : reports: No Symptoms Reported Musculoskeletal: reports: Back Pain, Neck Pain Integumentary: reports: Dryness, Flushing Endocrine: reports: Increased Thirst Hematology: reports: No Symptoms Reported Psychiatric: reports: Anxious, Depressed Other Systems: Reviewed and Negative Patient History - Patient Medical History Hx Anemia: No Hx Asthma: No Hx Chronic Obstructive Pulmonary Disease (COPD): No Hx Cancer: No Hx Cardiac Disorders: No Hx Congestive Heart Failure: No Hx Hypertension: Yes (NOT ON MEDICATION) Hx Hypercholesterolemia: No Hx Pacemaker: No HX Cerebrovascular Accident: No Hx Seizures: No Hx Dementia: No Hx Diabetes: No Hx Gastrointestinal Disorders: No Hx Liver Disease: No Hx Genitourinary Disorders: No Hx Sexually Transmitted Disorders: No Hx Renal Disease (ESRD): No Hx Thyroid Disease: No Hx Human Immunodeficiency Virus (HIV): No (Negative 2016) Hx Hepatitis C: No Hx Depression: Yes (Not on medication) Hx Suicide Attempt: No (Denies suicidal ideation at this time) Hx Bipolar Disorder: Yes Hx Schizophrenia: No - Patient Surgical History Past Surgical History: No Hx Neurologic Surgery: No Hx Cataract Extraction: No Hx Cardiac Surgery: No Hx Lung Surgery: No Hx Abdominal Surgery: No Hx Appendectomy: No Hx Cholecystectomy: No Hx Genitourinary Surgery: No Hx Section: No Hx Orthopedic Surgery: No Anesthesia Reaction: No - PPD History Previous Implant?: Yes Documented Results: Negative w/proof Implanted On Prior [facility] Admission?: Yes Date: 11/07/16 Results: 0 mm PPD to be Administered?: No - Reproductive History Patient is a Female of Child Bearing Age (11 -55 yrs old): No (MALE) - Smoking Cessation Smoking history: Current some day smoker Have you smoked in the past 12 months: Yes Aproximately how many cigarettes per day: 2 Cigars Per Day: 0 Hx Chewing Tobacco Use: No Initiated information on smoking cessation: Yes 'Breaking Loose' booklet given: 09/28/17 - Substance & Tx. History Hx Alcohol Use: Yes Hx Substance Use: Yes Substance Use Type: Cocaine Hx Substance Use Treatment: Yes ([facility]) - Substances Abused Alcohol Route: Oral Frequency: Daily Amount used: 6 [place] [employer]ERS Age of first use: 16 Date of Last Use: 09/28/17 Cocaine Route: Smoking Frequency: Daily Amount used: 1/2 GRAM Age of first use: 34 Date of Last Use: 09/27/17 Family Disease History - Family Disease History Family Disease History: Diabetes: Mother, Other: Father (Parkinson's disease- ) Admission Physical Exam [facility] - Vital Signs Vital Signs: Vital Signs - 24 hr 09/28/17 08:54 Temperature 97.2 F L Pulse Rate 98 H Respiratory 20 Rate Blood Pressure 156/86 - Physical General Appearance: Yes: Appropriately Dressed, Moderate Distress, Tremorous, Irritable, Anxious HEENTM: Yes: EOMI, Normal ENT Inspection, Normal Voice Respiratory: Yes: Lungs Clear, Normal Breath Sounds, No Respiratory Distress Neck: Yes: Supple Breast: Yes: Breast Exam Deferred Cardiology: Yes: Tachycardia Abdominal: Yes: Normal Bowel Sounds, Soft Genitourinary: Yes: Within Normal Limits Back: Yes: Normal Inspection Musculoskeletal: Yes: Back pain, Other (neck pain) Extremities: Yes: Tremors Neurological: Yes: Alert, Normal Mood/Affect Integumentary: Yes: Dry Lymphatic: Yes: Within Normal Limits - Diagnostic (1) Dehydration Current Visit: Yes Status: Acute (2) Alcohol dependence with uncomplicated withdrawal Current Visit: Yes Status: Chronic (3) Cocaine dependence Current Visit: Yes Status: Chronic Comment: . (4) Depression Current Visit: Yes Status: Chronic Qualifiers: Depression Type: unspecified Qualified Code(s): F32.9 - Major depressive disorder, single episode, unspecified (5) Hypertension Current Visit: Yes Status: Chronic Qualifiers: Hypertension type: essential hypertension Qualified Code(s): I10 - Essential (primary) hypertension (6) Nicotine dependence Current Visit: Yes Status: Chronic Qualifiers: Nicotine product type: cigarettes Substance use status: uncomplicated Qualified Code(s): F17.210 - Nicotine dependence, cigarettes, uncomplicated Comment: . Cleared for Admission S - Detox or Rehab [facility] Level of Care: Medically Managed Detox Regimen/Protocol: Librium S Breath Alcohol Content Breath Alcohol Content: 0.003 Urine Drug Screen - Results Drug Screen Negative: No Urine Drug Screen Results: CAILIN-Cocaine
[2017-09-28] MEDS ORDERED: chlordiazePOXIDE HCL 25 MG CAPSULE PO PRN (09:42)
[2017-09-28] MEDS ORDERED: ACETAMINOPHEN 325 MG TABLET (FP) PO PRN (09:42)
[2017-09-28] MEDS ORDERED: MAG HYDROX/AL HYDROX/SIMETH 30 ML UNIT-DOSE CUP PO PRN (09:42)
[2017-09-28] MEDS ORDERED: MENTHOL/PHENOL 1 EACH UD MM PRN (09:42)
[2017-09-28] MEDS ORDERED: P-EPHED 60MG/TRIPROLIDI 2.5MG TABLET PO PRN (09:42)
[2017-09-28] MEDS ORDERED: LOPERAMIDE HCL 2 MG CAPSULE PO PRN (09:42)
[2017-09-28] MEDS ORDERED: MAGNESIUM HYDROX 2400MG/30ML ORAL SUSPENSION 30 ML CUP PO PRN (09:42)
[2017-09-28] MEDS ORDERED: NICOTINE POLACRILEX 2 MG GUM BC PRN (09:42)
[2017-09-28] MEDS ORDERED: MAGNESIUM CITRATE 300 ML BOTTLE PO PRN (09:42)
[2017-09-28] MEDS ORDERED: IBUPROFEN 400 MG TABLET (FP) PO PRN (09:42)
[2017-09-28] MEDS ORDERED: guaiFENesin/D-METHORPHAN HB 10 ML UNIT-DOSE CUPS PO PRN (09:42)
[2017-09-28] MEDS ORDERED: NICOTINE 14 MG/24 HOURS TOPICAL PATCH TD SCH (10:00)
[2017-09-28] MEDS: chlordiazePOXIDE HCL 25 MG CAPSULE PO SCH ×3 (12:07→22:20)
[2017-09-28] MEDS ORDERED: ONDANSETRON *ODT* 4 MG TABLET SL PRN (13:28)
[2017-09-28] MEDS ORDERED: PRENATAL VITAMINS W/ FOLIC ACID TABLET (FP) PO SCH (13:30)
--- NOTE | 2017-09-28 14:45 | EKG ---
Test Reason : Blood Pressure : / mmHG Vent. Rate : 085 BPM Atrial Rate : 085 BPM P-R Int : 158 ms QRS Dur : 094 ms QT Int : 368 ms P-R-T Axes : 047 048 047 degrees QTc Int : 437 ms NORMAL SINUS RHYTHM NORMAL ECG WHEN COMPARED WITH ECG OF 14-APR-2017 15:28, NO SIGNIFICANT CHANGE WAS FOUND Confirmed by CHRISTIANO COLLINS MD ([id number]) on 09/28/2017 2:45:17 PM Referred By: Confirmed By:CHRISTIANO COLLINS MD
[2017-09-28 15:10] LABS: URINE APPEARANCE TURBID; URINE BILIRUBIN NEGATIVE (<2.0 mg/dL); URINE BLOOD NEGATIVE (NEGATIVE); URINE COLOR YELLOW; URINE GLUCOSE (UA) NEGATIVE (NEGATIVE); URINE KETONE TRACE (NEGATIVE); URINE LEUK ESTERASE NEGATIVE (NEGATIVE); URINE NITRITE NEGATIVE (NEGATIVE); URINE PROTEIN NEGATIVE (NEGATIVE); URINE UROBILINOGEN NEGATIVE mg/dL (0.2-1.0)
[2017-09-28] MEDS ORDERED: MELATONIN 5 MG TABLETS PO PRN (22:00)
[2017-09-28] MEDS ORDERED: THIAMINE HCL 100 MG TABLET (FP) PO SCH (22:00)
[2017-09-29] MEDS: chlordiazePOXIDE HCL 25 MG CAPSULE PO SCH (05:11)
[2017-09-29 06:03] VITALS: BP 139/81; PULSE 65; TEMP 96.4
[2017-09-29] MEDS ORDERED: chlordiazePOXIDE HCL 25 MG CAPSULE PO SCH (11:00)
[2017-09-29 12:36] LABS: ALBUMIN 3.9 g/dl (3.4-5.0); ANION GAP 10 (8-16); BLOOD UREA NITROGEN 19 mg/dL (7-18); CALCIUM 9.1 mg/dL (8.5-10.1); CHLORIDE 103 mmol/L (98-107); CO2 27 mmol/L (21-32); CREATININE 0.9 mg/dL (0.7-1.3); GLUCOSE,RANDOM 81 mg/dL (74-106); POTASSIUM 4.3 mmol/L (3.5-5.1); SGPT/ALT 26 U/L (12-78); SODIUM 140 mmol/L (136-145)
[2017-09-29 12:42] LABS: ALK PHOS 80 U/L (45-117); BILIRUBIN,TOTAL 0.4 mg/dL (0.2-1.0); SGOT/AST 19 U/L (15-37); TOT PROT 7.2 g/dl (6.4-8.2)
--- NOTE | 2017-09-29 13:10 | DS ---
[facility] Detox Discharge Summary Admission Date: 09/28/17 Discharge Date: 09/29/17 - History Additional Comments: Pt left unit prior to this provider's assessment. Per RN, pt very insistent on leaving despite being encouraged to wait for provider assessment. Per RN, pt was not in acute distress Pertinent Past History: HTN - Physical Exam Results Vital Signs: Vital Signs Temperature 96.4 F L 09/29/17 06:03 Pulse Rate 65 09/29/17 06:03 Respiratory Rate 18 09/29/17 06:03 Blood Pressure 139/81 09/29/17 06:03 O2 Sat by Pulse Oximetry (%) Pertinent Admission Physical Exam Findings: withdrawal sx - Medication Discharge Medications: Ambulatory Orders Quetiapine Fumarate "Xr" [Seroquel Xr -] 50 mg PO HS 09/28/17 - Diagnosis (1) Alcohol dependence with uncomplicated withdrawal Status: Acute (2) Cannabis abuse, uncomplicated Status: Chronic (3) Cocaine dependence Status: Chronic (4) Dehydration Status: Acute (5) Substance induced mood disorder Status: Chronic (6) Substance-induced anxiety disorder Status: Chronic (7) Hypertension Status: Chronic Qualifiers: Hypertension type: essential hypertension Qualified Code(s): I10 - Essential (primary) hypertension - AMA Did Patient Leave Against Medical Advice: Yes
[2017-09-29 14:25] LABS: HEMOGLOBIN 15.1 GM/dL (11.7-16.9); MCH 31.4 pg (25.7-33.7); MCHC 33.5 g/dl (32.0-35.9); MEAN PLT VOLUME 10.6 fl (7.5-11.1); PLATELET COUNT 173 K/MM3 (134-434); RBC 4.79 M/mm3 (4.00-5.60); RDW 14.1 % (11.9-15.9); WHITE BLOOD COUNT 4.3 K/mm3 (4.0-10.0)
[2017-09-30] MEDS ORDERED: chlordiazePOXIDE 5 MG CAPSULE PO SCH (11:00)
[2017-10-01] MEDS ORDERED: chlordiazePOXIDE HCL 10 MG CAPSULE PO SCH (11:00)
== END 2017-09-29 09:27 | disposition left against medical advice (07) | DRG 770 ==
LOC: YASAS 08:46 → Y3N 10:05
PROVIDERS: ADMIT Internal Medicine; ATTEND Internal Medicine
PROC: HZ2ZZZZ Detoxification Services for Substance Abuse Treatment (ICD-10-PCS; principal; 2017-09-28)
DX: F10.230 Alcohol dependence with withdrawal, uncomplicated (principal); F14.20 Cocaine dependence, uncomplicated; F17.210 Nicotine dependence, cigarettes, uncomplicated; F32.9 Major depressive disorder, single episode, unspecified; I10 Essential (primary) hypertension; E86.0 Dehydration
CPT/HCPCS: 36415; 80053; 81003; 85027; 86593; 93005; 93010